=== PATIENT | male | born 1995 | race African-American/Black ===

== ENCOUNTER 2020-09-15 14:03 | Emergency (ER) | payer SELFPAY ==
[~2020-09-15] VITALS: Ht 177.8 cm; Wt 95.0 kg
[2020-09-15] MEDS ORDERED: FLUORESCEIN SODIUM 1MG/STRIP LEFTEYE ONE (16:30)
[2020-09-15] MEDS ORDERED: TETRACAINE 0.5% OPHTH DROPS 4ML LEFTEYE ONE (16:30)
[2020-09-15] MEDS ORDERED: IBUPROFEN 600MG TABLET PO ONE (17:30)
[2020-09-15 18:13] VITALS: BP 128/74
== END 2020-09-15 18:14 | disposition home or self-care (01) ==
LOC: ER 14:03
DX: S00.12XA Contusion of left eyelid and periocular area, initial encounter (principal); H11.32 Conjunctival hemorrhage, left eye; F12.10 Cannabis abuse, uncomplicated; W01.198A Fall on same level from slipping, tripping and stumbling with subsequent striking against other object, initial encounter; Y93.89 Activity, other specified; Y92.89 Other specified places as the place of occurrence of the external cause
CPT/HCPCS: 70450; 70486; 99285; Z7610

== ENCOUNTER 2023-05-31 01:18 | Emergency (ER) | payer SELFPAY ==
[~2023-05-31] VITALS: Ht 177.8 cm; Wt 70.0 kg
[2023-05-31 01:23] VITALS: O2SAT 98
[2023-05-31] MEDS ORDERED: CEFAZOLIN 1000MG PREMIX 50 ML IV ONE (01:45)
[2023-05-31 01:53] LABS: BASOPHILS % 0.2 % (0.0-2.0); EOSINOPHILS % 0.5 % (0.0-5.0); HEMATOCRIT. 45.5 % (42.0-52.0); LYMPHOCYTES % 35.3 % (20.0-50.0); MEAN CORPUSCULAR HEMOGLOBIN 32.3 pg (28.0-32.0); MEAN CORPUSCULAR VOLUME 97.9 fL (80.0-94.0); MONOCYTES % 6.9 % (2.0-8.0); NEUTROPHILS % 57.1 % (40.0-76.0); PLATELET 219 x1000/uL (130-400); RED BLOOD CELL COUNT 4.64 mill/uL (4.7-6.1); RED CELL DISTRIBUTION WIDTH 12.4 % (11.6-14.6); WHITE BLOOD COUNT 11.1 x1000/uL (4.5-11.0)
[2023-05-31 02:00] LABS: CALCIUM 9.3 mg/dL (8.7-10.4); CARBON DIOXIDE 26 mEq/L (21-32); CHLORIDE 104 mEq/L (98-107); CREATININE 1.1 mg/dL (0.6-1.3); GLUCOSE 104 mg/dL (70-105); POTASSIUM 3.5 mEq/L (3.5-5.1); SODIUM 141 mEq/L (136-145); UREA NITROGEN BLOOD 14 mg/dL (9-23)
[2023-05-31] MEDS ORDERED: MORPHINE SULFATE 4 MG/ML CPJ (NOT FOR IM USE) IV ONE (02:15)
[2023-05-31] MEDS ORDERED: MORPHINE SULFATE 10 MG/ML CPJ IV ONE (03:45)
[2023-05-31] MEDS ORDERED: NEOMYCIN/BACITRACIN/POLYMYXIN OINT 14GM TOP STA (04:34)
[2023-05-31] MEDS ORDERED: HYDROCODONE/ACETAMINOPHEN 5/325MG TABLET PO ONE (05:00)
[2023-05-31] MEDS ORDERED: LORAZEPAM 1MG TABLET PO ONE (05:00)
[2023-05-31] MEDS ORDERED: CEPH500C2 MT (05:12)
[2023-05-31] MEDS ORDERED: HYDR-4001 MT ×3 (05:12→08:44)
[2023-05-31] MEDS ORDERED: LORAZEPAM 1MG TABLET PO NR (05:15)
[2023-05-31 05:30] VITALS: TEMP 98
[2023-05-31] MEDS ORDERED: TETANUS, DIPHTHERIA, PERTUSSIS VAC/PF 0.5ML (>10YR OLD) IM ONE (05:45)
[2023-05-31 06:45] VITALS: BP 121/69; PULSE 82; RESP 15
== END 2023-05-31 06:45 | disposition home or self-care (01) ==
LOC: ER 01:18
DX: S81.032A Puncture wound without foreign body, left knee, initial encounter (principal); F12.10 Cannabis abuse, uncomplicated; W34.09XA Accidental discharge from other specified firearms, initial encounter; Y93.89 Activity, other specified; Y92.89 Other specified places as the place of occurrence of the external cause; Y99.8 Other external cause status
CPT/HCPCS: 80048; 85025; 36415; 73060; 73090; 73560; 73706; 90715; 90471; 96365; 96375; 96376; 99285; J0690; J2270 ×2; Z7610 ×2; L1830